=== PATIENT | female | born 1940 | race Caucasian/White ===

== ENCOUNTER 2019-02-08 18:26 | Emergency (ER) | payer MEDICARE, OTHER ==
[~2019-02-08] VITALS: Ht 154.9 cm; Wt 48.1 kg
[2019-02-08 18:36] VITALS: BP 198/107
[2019-02-08] MEDS ORDERED: AMLO5TAB9 PO (18:41)
[2019-02-08] MEDS ORDERED: LORA0.5T PO (18:44)
--- NOTE | 2019-02-08 18:47 | NUR ---
RX provided, explained to both patient and daughter. Patient discharged to home in stable condition. Written and verbal after care instructions given. Patient and daughter verbalizes understanding of instruction.
== END 2019-02-08 18:54 | disposition home or self-care (01) ==
LOC: ER 18:29
DX: H81.13 Benign paroxysmal vertigo, bilateral (principal); I10 Essential (primary) hypertension; F41.9 Anxiety disorder, unspecified; Z88.0 Allergy status to penicillin

== ENCOUNTER 2023-03-22 13:25 | Emergency (ER) | payer BC, OTHER ==
[~2023-03-22] VITALS: Ht 152.4 cm; Wt 46.7 kg
[~2023-03-22 13:25] MED LIST: AMLO-212 PO; LORA0.5T PO
--- NOTE | 2023-03-22 13:36 | NUR ---
CALLED DR. DUMONT [phone]
--- NOTE | 2023-03-22 15:20 | NUR ---
ULTRASOUND AT BEDSIDE
--- NOTE | 2023-03-22 15:42 | NUR ---
KANDACE [phone]
[2023-03-22 16:00] VITALS: BP 158/96
== END 2023-03-22 16:01 | disposition home or self-care (01) ==
LOC: ER 13:30
DX: R60.0 Localized edema (principal); I10 Essential (primary) hypertension; F41.9 Anxiety disorder, unspecified; Z79.899 Other long term (current) drug therapy; Z88.0 Allergy status to penicillin
CPT/HCPCS: 73610-TC; 73630-TC; 93971-TC